=== PATIENT | male | born 1990 | race Hispanic/Latino ===

== ENCOUNTER 2022-05-11 15:53 | Emergency (ER) | payer OTHER ==
[~2022-05-11] VITALS: Ht 165.1 cm; Wt 70.0 kg
[2022-05-11 17:36] VITALS: BP 123/80
[2022-05-11] MEDS ORDERED: VOLTAREN75 MG PO (19:24)
[2022-05-11 19:52] VITALS: BP 104/69
[2022-05-11 19:53] VITALS: BP 104/69
== END 2022-05-11 20:29 | disposition home or self-care (01) | DRG 605 ==
LOC: ED 15:53
DX: S40.011A Contusion of right shoulder, initial encounter (principal); S20.229A Contusion of unspecified back wall of thorax, initial encounter; X58.XXXA Exposure to other specified factors, initial encounter